=== PATIENT | female | born 1990 | race Caucasian/White ===

== ENCOUNTER 2020-04-18 22:15 | Emergency (ER) | payer SELFPAY ==
[~2020-04-18] VITALS: Ht 160 cm; Wt 89.8 kg
[2020-04-18 22:18] VITALS: Ht 160 cm; Wt 89.8 kg
[2020-04-19 00:02] LABS: CALCIUM 8.7 mg/dL (8.5-10.1); CARBON DIOXIDE 27.5 mmol/L (21-32); CHLORIDE SERUM 103 mmol/L (98-107); CREATININE SERUM 0.7 mg/dL (0.6-1.0); GFR1 > 60 mL/min; GLUCOSE SERUM 105 mg/dL (74-106); POTASSIUM SERUM 3.8 mmol/L (3.5-5.1); SODIUM SERUM 137 mmol/L (136-145)
[2020-04-19 00:04] LABS: BASOPHIL % 0.3 % (0-2); PLATELET COUNT 238 x10^3mcL (130-400)
[2020-04-19 00:07] LABS: ALKALINE PHOSPHATASE 71 U/L (46-116); ALT/SGPT 192 U/L (14-59); AST/SGOT 87 U/L (15-37); BILIRUBIN TOTAL 0.3 mg/dL (0.20-1.00); LIPASE 86 IU/L (73-393); RED CELL DISTRIBUTION WIDTH 15.1 % (11.5-14.5); TOTAL PROTEIN, SERUM 6.9 g/dL (6.4-8.2)
[2020-04-19 00:09] LABS: ALBUMIN 3.3 g/dL (3.4-5.0)
[2020-04-19 00:54] LABS: microscopic required? YES; urine erythrocyte 3+ (NEGATIVE)
[2020-04-19 02:29] VITALS: BP 128/78
== END 2020-04-19 02:28 | disposition home or self-care (01) ==
LOC: ED 22:15
PROVIDERS: Emergency Medicine
DX: R10.9 Unspecified abdominal pain (principal); R11.2 Nausea with vomiting, unspecified; R19.7 Diarrhea, unspecified; M79.10 Myalgia, unspecified site; R30.9 Painful micturition, unspecified
CPT/HCPCS: J0500; J1885; J2270; J7030